=== PATIENT | male | born 1990 ===

== ENCOUNTER 2017-09-27 08:36 | Emergency (ER) | payer MEDICAID ==
[2017-09-27] MEDS ORDERED: Pantoprazole 40 mg EC Tab PO STA (09:22)
[2017-09-27] MEDS ORDERED: Pantoprazole 40 mg EC Tab PO ONE (09:36)
[2017-09-27 09:39] LABS: URINE BILIRUBIN NEGATIVE (NEGATIVE); URINE BLOOD NEGATIVE (NEGATIVE); URINE CLARITY Clear (Clear); URINE COLOR Yellow (YELLOW); URINE GLUCOSE (UA) NORMAL (Normal); URINE LEUKOCYTE ESTERASE NEG Leu/uL (Negative); URINE PROTEIN NEGATIVE (NEGATIVE); URINE UROBILINOGEN NORMAL mg/dL (0.2-1.0)
--- NOTE | 2017-09-27 09:45 | C.PDOC ---
History Of Present Illness 26 yo mlae come in for evaluation of intermittent epigastric pain for past 2 months associated with nausea. Pt sts, " sometimes, I wake up in AM with more stomach pain, feeling nauseous". Pt admits, ' was told in past has gastritis". Otherwise, pt denies fever, chills, food intolerance, denies change in abd. pain with food intake, CP, SOB, hematemesis, diarrhea, melena, back pain, UTI sx. Ambulate to ED for evaluation, not ion any apparent distress. Time Seen by Provider: 09/27/17 08:47 Chief Complaint (Nursing): Abdominal Pain History Per: Patient Past Medical History Reviewed: Historical Data, Nursing Documentation, Vital Signs Vital Signs: Last Vital Signs Temp 99.3 F 09/27/17 10:02 Pulse 68 09/27/17 10:02 Resp 18 09/27/17 10:02 BP 106/67 09/27/17 10:02 Pulse Ox 100 09/27/17 10:02 - Medical History PMH: Asthma Family History: States: No Known Family Hx - Social History Hx Tobacco Use: No Hx Alcohol Use: Yes Hx Substance Use: Yes - Immunization History Hx Tetanus Toxoid Vaccination: No Hx Influenza Vaccination: No Hx Pneumococcal Vaccination: No Review Of Systems Except As Marked, All Systems Reviewed And Found Negative. Constitutional: Negative for: Fever, Chills Eyes: Negative for: Vision Change ENT: Negative for: Throat Pain Cardiovascular: Negative for: Chest Pain, Palpitations Respiratory: Negative for: Cough, Shortness of Breath, Wheezing Gastrointestinal: Positive for: Nausea, Vomiting, Abdominal Pain. Negative for : Melena, Hematochezia, Hematemesis Genitourinary: Negative for: Dysuria, Incontinence Musculoskeletal: Negative for: Neck Pain, Back Pain Skin: Negative for: Rash Neurological: Negative for: Weakness, Numbness, Altered Mental Status, Dizziness Physical Exam - Physical Exam Appears: Well, Non-toxic, No Acute Distress Skin: Normal Color, Warm, Dry, No Rash Head: Normacephalic Eye(s): bilateral: PERRL Ear(s): Bilateral: Normal Nose: No Flaring, No Discharge Oral Mucosa: Moist Throat: No Erythema, No Drooling Neck: Trachea Midline, Supple Cardiovascular: Rhythm Regular Respiratory: No Decreased Breath Sounds, No Accessory Muscle Use, No Stridor, No Wheezing Gastrointestinal/Abdominal: Bowel Sounds, Tenderness (mild epigastric), No Distention, No Guarding, No Rebound Back: No CVA Tenderness Extremity: Normal ROM, No Deformity, No Swelling Neurological/Psych: Oriented x3, Normal Speech ED Course And Treatment O2 Sat by Pulse Oximetry: 99 Pulse Ox Interpretation: Normal - Other Rad Abd, 2 views X-Ray: Interpreted by Me, Viewed By Me, Read By Radiologist Interpretation: (-) aif-fluid level, gas pattern c/w constipation Progress Note: On re-eval, pt is afebrile, hemodynamicaly stable. NOn-toxic. Tolerate po well in ED. PulsEOx 99% RA. ENT: no acute findings. neck: SUpple , (-) meningeal sign. Lungs: CTA B/L, BS equal B/L. ABd: benign, (-) guarding , (-) rebound, (-) localized tenderness. Neurologicaly intact. UA (-) acute findings. Abx xray (+) constipation. Pt has clinical findings c/w epigastric pain, nos. Constipation. Pt advised. ref. to f/u with PMD, GI in 2-3 dyas for re-evaluation. return renee ED if any worsening or new changes. Disposition Counseled Patient/Family Regarding: Studies Performed, Diagnosis, Need For Followup, Rx Given - Disposition Referrals: [facility] [Outside] Meng Lucia [Staff Provider] - Disposition: HOME/ ROUTINE Disposition Time: 09:43 Condition: STABLE Additional Instructions: Encourage fluids Take medication as prescribed Probiotic Follow up with PMD, [employer] in 2-3 days for re-evaluation. return to ED if any worsening or new changes. Prescriptions: Pantoprazole Sodium [Protonix] 40 mg PO DAILY #30 tablet. Sucralfate [Carafate] 1 gm PO TID #20 tab Instructions: Constipation, Adult (DC) Forms: [facility] (Spanish) - Clinical Impression Clinical Impression: Constipation, Abdominal pain
[2017-09-27 10:03] VITALS: BP 106/67; PULSE 68; RESP 18; TEMP 99.3
--- NOTE | 2017-09-27 10:10 | RAD ---
HISTORY: pain COMPARISON: No prior. FINDINGS: BOWEL: Moderate stool retention No obstruction. No free air. BONES: Normal. OTHER FINDINGS: None. IMPRESSION: Moderate stool retention. No obstruction or free air.
[2017-09-27 17:49] VITALS: O2SAT 99
== END 2017-09-27 10:02 | disposition home or self-care (01) ==
LOC: C.ER 08:36
DX: R10.9 Unspecified abdominal pain (principal); K59.00 Constipation, unspecified

== ENCOUNTER 2018-01-29 17:05 | Emergency (ER) | payer MEDICAID ==
[2018-01-29] MEDS ORDERED: Sodium Chloride 0.9% 1,000 ML IV ONE (17:27)
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
[2018-01-29 17:38] LABS: BASO # 0.1 K/uL (0.0-0.2); BASO % 0.8 % (0.0-2.0); EOS # 0.2 K/uL (0.0-0.7); EOS % 1.5 % (0.0-4.0); HEMOGLOBIN 14.8 g/dL (12.0-18.0); LYMPH # 2.4 K/uL (1.0-4.3); LYMPH % 23.9 % (20.0-40.0); MEAN CELL VOLUME 79.5 fL (80.0-94.0); MEAN CORPUSCULAR HEMOGLOBIN 26.2 pg (27.0-31.0); MEAN PLATELET VOLUME 7.9 fL (7.2-11.7); MONO # 0.7 K/uL (0.0-0.8); NEUT # 6.8 K/uL (1.8-7.0); NEUT % 66.8 % (50.0-75.0); RBC 5.64 Mil/uL (4.40-5.90); RED CELL DISTRIBUTION WIDTH 14.9 % (11.5-14.5); WHITE BLOOD COUNT 10.1 K/uL (4.8-10.8)
[2018-01-29] MEDS ORDERED: Sodium Chloride 0.9% 1,000 ML ONE (17:40)
--- NOTE | 2018-01-29 17:48 | RAD ---
Date of service: 01/29/2018 PROCEDURE: CHEST RADIOGRAPH, 1 VIEW HISTORY: Seizure COMPARISON: None available. FINDINGS: LUNGS: Clear. PLEURA: No pneumothorax or pleural fluid seen. CARDIOVASCULAR: Normal. OSSEOUS STRUCTURES: No significant abnormalities. VISUALIZED UPPER ABDOMEN: Normal. OTHER FINDINGS: None. IMPRESSION: No active disease.
[2018-01-29 17:50] LABS: ALB/GLOB RATIO 1.2 (1.0-2.1); ALBUMIN 4.5 g/dL (3.5-5.0); BLOOD UREA NITROGEN 10 mg/dL (9-20); CALCIUM 9.4 mg/dl (8.6-10.4); GFR NON-AFRICAN AMERICAN > 60
[2018-01-29 17:52] LABS: ALT/SGPT 17 U/L (21-72); AST/SGOT 28 U/L (17-59)
[2018-01-29 19:13] LABS: URINE BACTERIA RARE (<OCC); URINE BILIRUBIN NEGATIVE (NEGATIVE); URINE BLOOD NEGATIVE (NEGATIVE); URINE CLARITY Hazy (Clear); URINE COLOR Yellow (YELLOW); URINE GLUCOSE (UA) NORMAL (Normal); URINE LEUKOCYTE ESTERASE NEG Leu/uL (Negative); URINE PROTEIN 1+ mg/dL (NEGATIVE); URINE UROBILINOGEN NORMAL mg/dL (0.2-1.0)
[2018-01-29 19:28] LABS: BARBITURATES, UR NEGATIVE (NEGATIVE); BENZODIAZEPINES, UR NEGATIVE (NEGATIVE); OPIATES, UR NEGATIVE (NEGATIVE); PHENCYCLIDINE, UR NEGATIVE (NEGATIVE)
[2018-01-29 19:58] VITALS: PULSE 78; RESP 20; TEMP 98.4
[2018-01-29 20:56] VITALS: BP 118/72; O2SAT 97
--- NOTE | 2018-01-30 08:19 | CT ---
Date of service: 01/29/2018 PROCEDURE: CT HEAD WITHOUT CONTRAST. HISTORY: seizure vs vasovagal syncope COMPARISON: None available. TECHNIQUE: Axial computed tomography images were obtained through the head/brain without intravenous contrast. Radiation dose: Total exam DLP = 1111 mGy-cm. This CT exam was performed using one or more of the following dose reduction techniques: Automated exposure control, adjustment of the mA and/or kV according to patient size, and/or use of iterative reconstruction technique. FINDINGS: HEMORRHAGE: No intracranial hemorrhage. BRAIN: No mass effect or edema. No atrophy or chronic microvascular ischemic changes. VENTRICLES: Unremarkable. No hydrocephalus. CALVARIUM: Unremarkable. PARANASAL SINUSES: Unremarkable as visualized. No significant inflammatory changes. MASTOID AIR CELLS: Unremarkable as visualized. No inflammatory changes. OTHER FINDINGS: None. IMPRESSION: No acute intracranial abnormality. If symptoms persist, consider correlation with MRI. These findings were preliminarily reported at 8:14 p.m. on 01/29/[address] Jack Mcfarland from [facility].
== END 2018-01-29 20:54 | disposition home or self-care (01) ==
LOC: C.ER 17:05
DX: R55 Syncope and collapse (principal); F19.10 Other psychoactive substance abuse, uncomplicated
CPT/HCPCS: 70450; 71045; 80053; 80320; 80324; 80345; 80346; 80349; 80353; 80358; 80361; 81001; 82550; 82948; 83992; 85025; 96360; 99285; J7030